=== PATIENT | male | born 1945 | race Two or more races ===

== ENCOUNTER 2022-05-17 11:00 | Inpatient (IN) | payer OTHER ==
[~2022-05-17] VITALS: Ht 167.6 cm; Wt 99.8 kg
[2022-05-17] MEDS ORDERED: COZAAR50 MG PO (13:32)
[2022-05-17] MEDS ORDERED: LIPIT PO (13:32)
[2022-05-20] MEDS ORDERED: ATORVASTATIN CA20 MG (08:44)
[2022-05-20] MEDS ORDERED: VITAMIN C500 M1 (08:45)
[2022-05-20] MEDS ORDERED: MAGNESIUM OXID500 MG (08:45)
[2022-05-20] MEDS ORDERED: ST. JOSEPH ASPI81 M2 (08:45)
== END 2022-05-21 12:18 | disposition home or self-care (01) | DRG 395 ==
LOC: ADM 11:00 → EDSTATUS 11:00 → O/R 05-20 05:20 → SURG 05-20 07:00 → SURH 05-20 11:21
PROVIDERS: ADMIT Colon & Rectal Surgery; ATTEND Colon & Rectal Surgery
PROC: 0DJD8ZZ Inspection of Lower Intestinal Tract, Via Natural or Artificial Opening Endoscopic (ICD-10-PCS; 2022-05-20)
PROC: 3E0T3BZ Introduction of Anesthetic Agent into Peripheral Nerves and Plexi, Percutaneous Approach (ICD-10-PCS; 2022-05-20)
PROC: 0DBP8ZZ Excision of Rectum, Via Natural or Artificial Opening Endoscopic (ICD-10-PCS; principal; 2022-05-20 07:00)
DX: D12.8 Benign neoplasm of rectum (principal); Z20.822 Contact with and (suspected) exposure to COVID-19